=== PATIENT | male | born 1995 | race Caucasian/White ===

== ENCOUNTER 2023-01-25 15:06 | Emergency (ER) | payer OTHER ==
[~2023-01-25] VITALS: Ht 160 cm; Wt 76.7 kg
[2023-01-25 15:14] VITALS: O2SAT 100
[2023-01-25] MEDS ORDERED: CLON0.5T4 PO (15:19)
[2023-01-25] MEDS ORDERED: VENL75TA4 PO (15:19)
== END 2023-01-25 16:57 | disposition home or self-care (01) ==
LOC: ER 15:13
DX: F41.9 Anxiety disorder, unspecified (principal); R00.2 Palpitations; R20.2 Paresthesia of skin; Z79.899 Other long term (current) drug therapy; Z60.2 Problems related to living alone
CPT/HCPCS: 93005; A4606; A4663